=== PATIENT | female | born 1975 | race African-American/Black ===

== ENCOUNTER 2020-08-31 15:31 | Emergency (ER) | payer OTHER | END 2020-08-31 17:00 | disposition home or self-care (01) | LOC: NAV ERS 15:31 | DX: S01.512A Laceration without foreign body of oral cavity, initial encounter (principal); I10 Essential (primary) hypertension; Z79.899 Other long term (current) drug therapy; Y04.2XXA Assault by strike against or bumped into by another person, initial encounter | CPT/HCPCS: 99283 ==